=== PATIENT | female | born 1955 | race African-American/Black ===

== ENCOUNTER 2022-03-10 13:02 | Emergency (ER) | payer OTHER | END 2022-03-10 16:10 | disposition home or self-care (01) | LOC: FER 13:02 | DX: S83.91XA Sprain of unspecified site of right knee, initial encounter (principal); I10 Essential (primary) hypertension; E11.9 Type 2 diabetes mellitus without complications; Z88.8 Allergy status to other drugs, medicaments and biological substances; W10.9XXA Fall (on) (from) unspecified stairs and steps, initial encounter; Y92.009 Unspecified place in unspecified non-institutional (private) residence as the place of occurrence of the external cause | CPT/HCPCS: 73564 ==

== ENCOUNTER 2022-05-03 06:38 | Emergency (ER) | payer OTHER ==
[2022-05-03] MEDS ORDERED: ULTRAM50 MG PO (09:31)
== END 2022-05-03 09:37 | disposition home or self-care (01) ==
LOC: FER 06:38
DX: S00.11XA Contusion of right eyelid and periocular area, initial encounter (principal); S80.212A Abrasion, left knee, initial encounter; S80.211A Abrasion, right knee, initial encounter; I12.0 Hypertensive chronic kidney disease with stage 5 chronic kidney disease or end stage renal disease; N18.6 End stage renal disease; Z99.2 Dependence on renal dialysis; Z88.8 Allergy status to other drugs, medicaments and biological substances; W01.0XXA Fall on same level from slipping, tripping and stumbling without subsequent striking against object, initial encounter; Y92.009 Unspecified place in unspecified non-institutional (private) residence as the place of occurrence of the external cause
CPT/HCPCS: 70450; 70486; 71045; 72125; 72170; 73560